=== PATIENT | male | born 1965 | race Caucasian/White ===

== ENCOUNTER 2023-10-22 14:08 | Inpatient (IN) | payer BC, OTHER ==
[2023-10-22 14:49] VITALS: BMI 25.0
[2023-10-22] MEDS ORDERED: NALOXONE HCL 0.4 MG/ML VIAL IM PRN (16:22)
[2023-10-22] MEDS ORDERED: IBUPROFEN 400 MG TABLET (FP) PO PRN (16:22)
[2023-10-22] MEDS ORDERED: LOPERAMIDE HCL 2 MG CAPSULE PO PRN (16:22)
[2023-10-22] MEDS ORDERED: DICYCLOMINE HCL 10 MG CAPSULE PO PRN (16:22)
[2023-10-22] MEDS ORDERED: MAGNESIUM HYDROX 2400MG/30ML ORAL SUSPENSION 30 ML CUP PO PRN (16:22)
[2023-10-22] MEDS ORDERED: ACETAMINOPHEN 325 MG TABLET (FP) PO PRN (16:22)
[2023-10-22] MEDS ORDERED: BENZOCAINE/MENTHOL (CHLORASEPTIC ) LOZENGE MM PRN (16:22)
[2023-10-22] MEDS ORDERED: ONDANSETRON *ODT* 4 MG TABLET SL PRN (16:22)
[2023-10-22] MEDS ORDERED: POLYETHYLENE GLYCOL (HEALTHYLAX) 3350 17 GM PACKET PO PRN (16:22)
[2023-10-22] MEDS ORDERED: IBUPROFEN 600 MG TABLET (FP) PO PRN (16:22)
[2023-10-22] MEDS ORDERED: guaiFENesin 600 MG TABLET.ER (FP) PO PRN (16:22)
[2023-10-22] MEDS ORDERED: NICOTINE POLACRILEX 2 MG GUM BUC PRN (16:22)
[2023-10-22] MEDS ORDERED: MAG HYDROX/AL HYDROX/SIMETH 30 ML UNIT-DOSE CUP PO PRN (16:22)
[2023-10-22] MEDS ORDERED: P-EPHED 60MG/TRIPROLIDI 2.5MG TABLET PO PRN (16:22)
[2023-10-22] MEDS ORDERED: NALOXONE (NARCAN) HCL 4 MG/0.1 ML SPRAY NS PRN (16:22)
[2023-10-22] MEDS ORDERED: BISMUTH SUBSALICYLATE 524 MG/30 ML PO PRN (16:22)
[2023-10-22] MEDS ORDERED: NICOTINE POLACRILEX 2 MG LOZENGE BC PRN (16:22)
[2023-10-22] MEDS ORDERED: BENZONATATE 200 MG CAPSULE PO PRN (16:22)
[2023-10-22] MEDS ORDERED: diazePAM 5 MG TABLET ONE (17:07)
[2023-10-22] MEDS: diazePAM 5 MG TABLET PO SCH (17:11)
[2023-10-22] MEDS: THIAMINE 100 MG TABLET PO SCH (22:13)
[2023-10-22] MEDS: MELATONIN 5 MG TABLETS PO SCH (22:13)
[2023-10-22] MEDS: METHOCARBAMOL 500 MG TABLET PO PRN (22:13)
[2023-10-23] MEDS ORDERED: methaDONE HCL 10 MG TABLET PO SCH (08:15)
[2023-10-23] MEDS: PRENATAL VITAMINS W/ FOLIC ACID TABLET (FP) PO SCH (10:07)
[2023-10-23 11:42] LABS: HEMATOCRIT 43.2 % (35.4-49); HEMOGLOBIN 14.3 GM/dL (11.7-16.9); MCH 30.4 pg (25.7-33.7); MCHC 33.1 g/dl (32.0-35.9); MEAN PLT VOLUME 8.9 fl (7.5-11.1); PLATELET COUNT 227 10^3/uL (134-434); WHITE BLOOD COUNT 5.3 K/mm3 (4.0-10.0)
[2023-10-23 11:47] LABS: ALBUMIN 3.6 g/dl (3.4-5.0); BLOOD UREA NITROGEN 9.7 mg/dL (7-18); CALCIUM 9.1 mg/dL (8.5-10.1)
[2023-10-23 11:49] LABS: CREATININE 0.8 mg/dL (0.55-1.3)
[2023-10-23 11:51] LABS: BILIRUBIN,TOTAL 1.1 mg/dL (0.2-1); TOT PROT 6.8 g/dl (6.4-8.2)
[2023-10-24] MEDS: diazePAM 5 MG TABLET PO SCH (05:37)
[2023-10-24] MEDS: diazePAM 5 MG TABLET PO PRN (09:49)
[2023-10-24] MEDS: hydrOXYzine PAMOATE 25 MG CAPSULE (FP) PO PRN (09:49)
[2023-10-25] MEDS: diazePAM 5 MG TABLET PO SCH (05:32)
[2023-10-26] MEDS: diazePAM 5 MG TABLET PO ONE (05:24)
[2023-10-27 09:04] VITALS: BP 126/90; PULSE 84; RESP 18; TEMP 97.7
== END 2023-10-27 09:44 | disposition home or self-care (01) | DRG 773 ==
LOC: YASAS 14:08 → Y6N 16:56
PROVIDERS: ADMIT Allergy & Immunology; ATTEND Surgery
PROC: HZ2ZZZZ Detoxification Services for Substance Abuse Treatment (ICD-10-PCS; principal; 2023-10-22)
DX: F13.230 Sedative, hypnotic or anxiolytic dependence with withdrawal, uncomplicated (principal); F11.20 Opioid dependence, uncomplicated; F17.210 Nicotine dependence, cigarettes, uncomplicated; Z59.00 Homelessness unspecified
CPT/HCPCS: 36415; 80053; 80305; 83036; 85027; 86780; 93005; 93010